=== PATIENT | female | born 1975 | race Caucasian/White ===

== ENCOUNTER 2016-05-10 15:59 | Emergency (ER) | payer BC, OTHER ==
--- NOTE | 2016-05-10 17:03 | UC ---
Hand/Wrist HPI - HPI Summary HPI Summary: 41 yo female injured he right hand jumping in [place] the ocean 5 days ago sustained an abrasion now hand more swollen and painful she is right handed and a type II diabetic no f/c - History Of Current Complaint Chief Complaint: UCUpperExtremity Stated Complaint: RIGHT HAND INJURY Time Seen by Provider: 05/10/16 16:47 Hx Obtained From: Patient Hx Last Menstrual Period: n/a Mechanism Of Injury: hit hand on floating dock Onset/Duration: Sudden Onset Severity Initially: Mild Severity Currently: Moderate Pain Intensity: 4 Pain Scale Used: 0-10 Numeric Character Of Pain: Dull, Aching Aggravating Factor(s): Movement Alleviating: Nothing Associated Signs And Symptoms: Positive: Swelling Related History: Dominant Hand Right - Allergies/Home Medications Allergies/Adverse Reactions: Allergies Allergy/AdvReac Type Severity Reaction Status Date / Time codeine Allergy See Comment Uncoded 05/10/16 16:39 environmental allergy Allergy Eyes Uncoded 07/01/15 14:59 Itchy/Swollen/Red/Watery Home Medications: Home Medications Aleve Tab 2 tab PO DAILY PRN 05/10/16 [History] Canagliflozin (NF) [Invokana (NF)] 100 mg PO DAILY 05/10/16 [History Confirmed 05/10/16] PMH/Surg Hx/FS Hx/Imm Hx Previously Healthy: Yes Endocrine History Of: Reports: Diabetes - Type 2 Cardiovascular History Of: Reports: Hypertension - Surgical History Surgical History: Yes Surgery Procedure, Year, and Place: UTERINE ABLATION, CSECTION, LEFT LEG SURG. RIGHT HEEL SPUR REMOVED. Gallbladder surgery - 02/05 - Family History Known Family History: Positive: Hypertension - Social History Alcohol Use: Occasionally Substance Use Type: None Smoking Status (MU): Never Smoked Tobacco - Immunization History Most Recent Influenza Vaccination: JAN 2015 Most Recent Tetanus Shot: UTD Review of Systems Constitutional: Negative Skin: Negative Eyes: Negative ENT: Negative Respiratory: Negative Cardiovascular: Negative Gastrointestinal: Negative Genitourinary: Negative Motor: Negative Neurovascular: Negative Musculoskeletal: Negative Neurological: Negative Psychological: Negative All Other Systems Reviewed And Are Negative: Yes Physical Exam Triage Information Reviewed: Yes Appearance: Well-Appearing, No Pain Distress, Well-Nourished Vital Signs: Initial Vital Signs Temp 97.3 F 05/10/16 16:29 Pulse 88 01/17/17 16:29 Resp 18 05/10/16 16:29 BP 127/91 05/10/16 16:29 Eyes: Positive: Conjunctiva Clear ENT: Positive: Hearing grossly normal. Negative: Nasal congestion, Nasal drainage, Trismus, Muffled/hoarse voice Neck: Positive: Supple, Nontender Respiratory: Positive: Lungs clear, Normal breath sounds, No respiratory distress Cardiovascular: Positive: RRR Musculoskeletal: Positive: ROM Intact, Edema @ - seee image Neurological: Positive: Alert Psychological Exam: Normal Skin Exam: Other - see image Hand/Wrist Course/Dx - Differential Dx/Diagnosis Provider Diagnoses: right hand contusion. ? infected abrasion Discharge - Discharge Plan Condition: Stable Disposition: HOME Prescriptions: DOXYcycline CAP(*) [DOXYcycline 100MG CAP(*)] 100 mg PO BID #14 cap Patient Education Materials: Contusion in Adults (ED) Referrals: Luis M Cannon PA [Primary Care Provider] - 1 Week Additional Instructions: recheck for new or worsening symptoms Images Hands: 1 - scabbed over abrasion with slight surrounding erythema 2 - dorsal hand edema. no erthema except immediately surrounding the abrasion
[2016-05-10 17:29] VITALS: BP 127/91
--- NOTE | 2016-05-10 17:32 | RAD ---
INDICATION: Pain at the right second through third metacarpals after traumatic injury 5 days earlier COMPARISON: None. TECHNIQUE: 2 views of the right hand were obtained. FINDINGS: The adequately corticated bones are in normal alignment. No significant focal osseous abnormality or fracture is seen. Joint spaces appear maintained. IMPRESSION: Normal right hand radiograph. If the patient's symptoms persist, follow-up imaging is recommended.
== END 2016-05-10 17:56 | disposition home or self-care (01) ==
LOC: UCCORT 15:59
DX: S60.221A Contusion of right hand, initial encounter (principal); S60.511A Abrasion of right hand, initial encounter; W16.612A Jumping or diving into natural body of water striking water surface causing other injury, initial encounter; Y93.89 Activity, other specified; Y92.89 Other specified places as the place of occurrence of the external cause; E11.9 Type 2 diabetes mellitus without complications; Z79.84 Long term (current) use of oral hypoglycemic drugs
CPT/HCPCS: 99212; G0463

== ENCOUNTER 2016-11-26 13:56 | Emergency (ER) | payer BC ==
[2016-11-26 14:09] VITALS: BP 130/82
--- NOTE | 2016-11-26 14:16 | UC ---
Lower Extremity/Ankle HPI - HPI Summary HPI Summary: 41 y/o female presents to the urgent care c/o RT heel and ankle pain since 2016 after spending 15 hrs of standing while working. Pt reports she has HX of surgery on that foot about 3 years ago for a heal spur where her Achilles tendon was reattached. Pt states pain is localized at the lateral side of ankle w/ swelling and back of her heel, Pain is 8/10 upon standing and 4/10 at rest. Pt took ibuprofen this morning at 0830 which alleviates her symptoms. Pt denies fever, SOB, chest pain, Calf pain, N/V/D. Pt has not other complains. - History of Current Complaint Stated Complaint: RIGHT FOOT PAIN-HEEL & SIDE Time Seen by Provider: 11/26/16 14:00 Hx Obtained From: Patient Hx Last Menstrual Period: "ongoing spotting" Scheduled for Hysterectomy 12/16/16 ?: No Onset/Duration: Gradual Onset, Lasting Days, Still Present Severity Initially: Moderate Severity Currently: Severe Pain Intensity: 8 Pain Scale Used: 0-10 Numeric Aggravating Factor(s): Standing, Ambulation Alleviating Factor(s): Rest, OTC Meds Able to Bear Weight: Yes - Risk Factors Gout Risk Factors: Negative, Age Over 40, Diabetes, Hypertension DVT Risk Factors: Negative Septic Arthritis Risk Factor: Negative - Allergies/Home Medications Allergies/Adverse Reactions: Allergies Allergy/AdvReac Type Severity Reaction Status Date / Time Codeine AdvReac "Buzzed Verified 11/26/16 14:02 Feeling" and Difficulty Sleeping Home Medications: Home Medications Aspirin [Aspirin Enteric Coated 81 MG] 81 mg PO DAILY 11/26/16 [History Confirmed 11/26/16] Dulaglutide (NF) [Trulicity (NF)] 1.5 mg SUBCUT MO 11/26/16 [History Confirmed 11/26/16] Ibuprofen TAB* [Advil TAB*] 600 mg PO Q6H PRN 11/26/16 [History Confirmed ] PMH/Surg Hx/FS Hx/Imm Hx Previously Healthy: Yes Endocrine History: Diabetes Cardiovascular History: Hypertension - Surgical History Surgical History: Yes Surgery Procedure, Year, and Place: UTERINE ABLATION, CSECTION, LEFT LEG SURG. RIGHT HEEL SPUR REMOVED. Gallbladder surgery - 02/05 - Family History Known Family History: Positive: Hypertension, Diabetes Family History: Breast cancer - Social History Occupation: Employed Full-time Lives: With Family Alcohol Use: Occasionally Substance Use Type: None Smoking Status (MU): Never Smoked Tobacco Household Exposure Type: Cigarettes - Immunization History Most Recent Influenza Vaccination: JAN 2015 Most Recent Tetanus Shot: UTD Review of Systems Constitutional: Negative Skin: Negative Eyes: Negative ENT: Negative Respiratory: Negative Cardiovascular: Negative Gastrointestinal: Negative Genitourinary: Negative Motor: Negative Neurovascular: Negative Musculoskeletal: Other: - RT heel and Rt ankle pain Neurological: Negative Psychological: Negative All Other Systems Reviewed And Are Negative: Yes Physical Exam Triage Information Reviewed: Yes Appearance: Well-Appearing, No Pain Distress, Well-Nourished, Obese Vital Signs: Initial Vital Signs Temp 98.1 F 11/26/16 14:01 Pulse 90 11/26/16 14:01 Resp 16 11/26/16 14:01 BP 130/82 11/26/16 14:01 Vital Signs Reviewed: Yes Eye Exam: Normal Eyes: Positive: Conjunctiva Clear - PERRLA, EOMI, fundi grossly normal ENT Exam: Normal ENT: Positive: Normal ENT inspection, Hearing grossly normal, Pharynx normal, TMs normal Dental Exam: Normal Neck exam: Normal Neck: Positive: Supple, Nontender, No Lymphadenopathy Respiratory Exam: Normal Respiratory: Positive: Chest non-tender, Lungs clear, Normal breath sounds Cardiovascular Exam: Normal Cardiovascular: Positive: RRR, No Murmur, Pulses Normal Abdominal Exam: Normal Abdomen Description: Positive: Nontender, No Organomegaly, Soft. Negative: CVA Tenderness (R), CVA Tenderness (L) Bowel Sounds: Positive: Present Neurological Exam: Normal Psychological Exam: Normal Skin Exam: Normal - RT ankle: Pt w/ difficulty walking ,Limited ROM due to pain , with mild swelling on the RT lateral malleolus, and tender to palaption . Positive pulses, sensation is intact, brisk capillary refill. Tenderness over the achilles tendon and limited flexion and extension due to pain. Rt heel tender on palaption. Devin's sign: negative Lower Extremity Course/Dx - Course Course Of Treatment: 41 y/o female presents to the urgent care c/o RT heel and ankle pain since 11/12/2016 after spending 15 hrs of standing while working. Pt reports she has HX of surgery on that foot about 3 years ago for a heal spur where her Achilles tendon was reattached. Pt states pain is localized at the lateral side of ankle w/ swelling and back of her heel, Pain is 8/10 upon standing and 4/10 at rest. Pt took ibuprofen this morning at 0830 which alleviates her symptoms. Pt denies fever, SOB, chest pain, Calf pain, N/V/D. Hx obtained. PE abnormal findings:RT ankle: Pt w/ difficulty walking ,Limited ROM due to pain, with mild swelling on the RT lateral malleolus, and tender to palaption . Positive pulses, sensation is intact, brisk capillary refill. Tenderness over the achilles tendon and limited flexion and extension due to pain. Rt heel tender on palaption. Devin's sign: negative. RT ankle X-ray ordered: impression: Significant thickened insertional segment w/ extension to the noninsertional segment. Suspicious of advance Achilles tendinopathy. Pt Rx Ibuprofen PO after meals to alleviate symptoms, RICE and f/u with PT in 5 days after swelling decreases and symptoms improve. Pt understood and agreed. Left the clinic ambulating. - Differential Dx/Diagnosis Differential Diagnosis/HQI/PQRI: Arthritis, Cellulitis, DVT, Sprain, Tendonitis - Achilles tendonitis, Achilles rupture, spur, Provider Diagnoses: 1- RT achilles tendonitis Discharge - Discharge Plan Condition: Stable Disposition: HOME Prescriptions: Ibuprofen TAB* [Motrin TAB* 800 MG] 800 mg PO Q6H #30 tab Patient Education Materials: Achilles Tendinitis (ED) Referrals: Luis M Cannon PA [Primary Care Provider] - 1 Week Additional Instructions: Please take medications as directed after meals to alleviate swelling and pain, apply ice and keep. Avoid movement until swelling decreases. F/u Pt evaluation for further evaluation and treatment.
[2016-11-26] MEDS ORDERED: Ketorolac INJ* 60 MG/2 ML VIAL IM ONE (14:35)
--- NOTE | 2016-11-26 14:44 | RAD ---
Indication: Lateral and posterior RIGHT ankle pain. Previous heel spur resection. Comparison: January 04, 2011 Technique: AP, mortise, and lateral views RIGHT ankle. Report: Normal articular alignment. Negative for significant joint space narrowing. Minimal osteophytosis throughout. No suggestion of talocrural joint effusion. Significantly thickened insertional segment of the Achilles tendon with extension to the noninsertional segment highly suspicious for advanced Achilles tendinopathy increased over the prior exam. Small Achilles tendon insertion and moderate plantar fascia origin bone spurs. Nonfocal soft tissue swelling. IMPRESSION: Significantly thickened insertional segment of the Achilles tendon with extension to the noninsertional segment highly suspicious for advanced Achilles tendinopathy increased over the prior exam.
== END 2016-11-26 15:04 | disposition home or self-care (01) ==
LOC: UCCORT 13:56
DX: M76.61 Achilles tendinitis, right leg (principal); E11.9 Type 2 diabetes mellitus without complications; I10 Essential (primary) hypertension; Z79.82 Long term (current) use of aspirin; F17.210 Nicotine dependence, cigarettes, uncomplicated; Z88.5 Allergy status to narcotic agent
CPT/HCPCS: 96372; 99212; G0463; J1885

== ENCOUNTER 2016-12-16 07:53 | Observation (INO) | payer BC ==
[~2016-12-16 07:53] MED LIST: Buffered Lidocaine 0.9% SYRIN* 5 ML/SYR SYRINGE INTRADERM ONE; Famotidine IV* 10 MG/ML 2 ML (20 mg) IV ONE; Ondansetron INJ* 2 MG/ML VIAL IV ONE
[2016-12-16] MEDS ORDERED: Midazolam* 1 MG/ML 2 ML VIAL (2 MG) ONE (07:58)
[2016-12-16] MEDS ORDERED: fentaNYL* 50 MCG/ML 5 ML VIAL (250 MCG VIAL) ONE (07:58)
[2016-12-16] MEDS ORDERED: Rocuronium* 10 MG/ML VIAL ONE (08:03)
[2016-12-16] MEDS ORDERED: Lidocaine 2% PF * 5 ML VIAL ONE ×2 (08:03→11:58)
[2016-12-16] MEDS ORDERED: Propofol* 10 MG/ML 20 ML BTL IV PUSH ONE ×2 (08:03→10:09)
[2016-12-16] MEDS ORDERED: Famotidine IV* 10 MG/ML 2 ML (20 mg) ONE (08:20)
[2016-12-16] MEDS ORDERED: Ondansetron INJ* 2 MG/ML VIAL ONE (08:20)
[2016-12-16] MEDS ORDERED: Buffered Lidocaine 0.9% SYRIN* 5 ML/SYR SYRINGE ONE (08:21)
[2016-12-16] MEDS ORDERED: ceFOXitin 2 GM IVPREMIX* 2 GM/50 ML BAG ONE (08:22)
[2016-12-16] MEDS ORDERED: Bupivacaine 0.25% SDV* 30 ML ONE (08:54)
[2016-12-16] MEDS ORDERED: Succinylcholine* 20 MG/ML 10 ML VIAL ONE (09:18)
[2016-12-16] MEDS ORDERED: Phenylephrine IV* 40 MCG/ML 10 ML SYRINGE ONE (09:52)
[2016-12-16] MEDS ORDERED: HYDROmorphone* 1 MG/ML 1 ML SYR ONE ×2 (10:15→12:59)
[2016-12-16] MEDS ORDERED: Scopolamine 1.5 mg* PATCH TRANSDERM PRN (10:19)
[2016-12-16] MEDS ORDERED: Acetaminophen TAB* 325 MG PO PRN (10:19)
[2016-12-16] MEDS ORDERED: DiMENhydriNATE IV* 50 MG/ML VIAL IV PUSH PRN (10:19)
[2016-12-16] MEDS ORDERED: Neostigmine Methylsulfate* 2 MG/2 ML SYRINGE ONE ×2 (10:25→11:35)
[2016-12-16] MEDS ORDERED: Glycopyrrolate IV* 0.2 MG/ML 1 ML VIAL ONE ×2 (10:25→11:35)
[2016-12-16] MEDS ORDERED: Atracurium* 10 MG/ML 10 ML VIAL ONE (10:53)
[2016-12-16] MEDS ORDERED: fentaNYL* 50 MCG/ML 2 ML VIAL (100 MCG VIAL) ONE ×2 (11:53→12:47)
[2016-12-16] MEDS ORDERED: Esmolol* 10 MG/ML 10 ML (100 mg) ONE (12:10)
[2016-12-16] MEDS ORDERED: oxyCODONE/Acetamin 5/325 MG* TAB PO PRN (12:30)
[2016-12-16] MEDS ORDERED: Ondansetron INJ* 2 MG/ML VIAL IV PRN (12:37)
[2016-12-16] MEDS: fentaNYL* 50 MCG/ML 2 ML VIAL (100 MCG VIAL) IV PRN ×4 (12:48→13:13)
[2016-12-16] MEDS: HYDROmorphone* 1 MG/ML 1 ML SYR IV PRN ×3 (13:00→13:23)
[2016-12-16] MEDS: Ketorolac INJ* 30 MG/ML 1 ML VIAL IV PUSH SCH ×2 (13:03→19:27)
[2016-12-16] MEDS ORDERED: Dextrose 50% Syringe 50 ML* 25 GM/50 ML SYRINGE IV PUSH PRN (13:09)
[2016-12-16] MEDS: Simethicone CHEW TAB* 80 MG PO SCH ×3 (14:18→20:43)
--- NOTE | 2016-12-16 15:49 | CONS ---
CC: Dr. Solorzano; Chris Cannon from [facility] CONSULTATION REPORT: DATE OF CONSULT: 12/16/16 REASON FOR CONSULTATION: A consult was requested for diabetic management and hypertension managemen t of a postoperative patient. CHIEF COMPLAINT: Lower abdominal pain. HISTORY OF PRESENT ILLNESS: Coby Santamaria is a 41-year-old female who was seen in postoperative uni t after laparoscopic hysterectomy performed by Dr. Solorzano today. The patient had general anesthesia a nd has had no perioperative complications. She is doing well, although she complains of periumbilic al pain after the procedure. Patient has a history of diabetes and hypertension as well as von Willebrand disease. She is going to be observed on surgical unit overnight. PAST MEDICAL HISTORY: 1. Diabetes, type 2. 2. Hyperlipidemia. 3. Hypertension. 4. Von Willebrand disease. 5. History of vein laser ablation in 2016. 6. Status post laparoscopic cholecystectomy. 7. History of left leg hematoma status post drainage. MEDICATIONS: At home include: 1. Metformin 1000 mg b.i.d. 2. Lisinopril 20 mg daily. 3. Ibuprofen on a p.r.n. basis. 4. Amaryl 4 mg daily. 5. Fluoxetine 20 mg daily. 6. Trulicity 1.5 mg subcutaneously monthly. 7. Lipitor 20 mg daily. 8. Aspirin 81 mg daily. SOCIAL HISTORY: The patient denies any tobacco, alcohol, or drug use. She works for one of the [employer]. Her surrogate decision maker is her , Immanuel Santamaria. FAMILY HISTORY: Positive for father with a stroke and mother with history of COPD and breast cancer . REVIEW OF SYSTEMS: Please note that the patient is slightly sedated after general anesthesia. She complains of periumbilical pain and harish-incisional pain. She stated that she is unsure how her sug ars are controlled because she never checks them at home. She denies any chest pain. She denies an y shortness of breath or cough. She does complain of periumbilical, abdominal pain postoperatively. She denies leg edema. All the remaining 14 systems were reviewed with the patient and were otherw ise negative. PHYSICAL EXAM: Blood pressure of 133/84, heart rate of 99 and regular, respiratory rate 18, oxygen saturation 99% on 2 L of oxygen via nasal cannula, temperature of 97.9. General: The patient is a very pleasant 41-year-old obese female with a BMI of 43. The patient is in no acute distress. She is mildly sedated, but otherwise oriented x3. HEENT: Head is atraumatic and normocephalic. Eyes: Pupils are equal, reactive to light and accommodation. Oropharynx clear. Mucosa moist. Neck: Sup ple. No JVD. No bruit bilaterally. Cardiovascular: Regular rate and rhythm. No murmur. Respira tory: Clear to auscultation bilaterally. Abdomen: Soft, mildly tender in the periumbilical area wh ere the incision is located with no rebound, no guarding. Bowel sounds are hypoactive but present i n all 4 quadrants. Extremities: There is trace bilateral pedal edema. Pulses are +2 bilaterally. T here is no clubbing or cyanosis. On neuro evaluation, speech is clear. Cranial nerves II through X II grossly intact. Motor strength is 5/5 bilaterally. On evaluation of the skin, the patient has n o rashes noted. She does have an incision within her umbilicus that is sutured with no evidence of dehiscence or drainage. Psychiatric Evaluation: Mildly sedated postoperatively, oriented x3. No ev idence of anxiety or depression. DIAGNOSTIC STUDIES/LAB DATA: Current laboratory data was last obtained on 12/09/16 showed a white b lood cell count of 8.3, hemoglobin of 14.2, hematocrit of 42, and platelets of 215. Sodium was 133, potassium of 4.4, chloride 100, carbon dioxide 27, BUN 10, creatinine 0.66. Liver function is unre markable. ASSESSMENT AND PLAN: Coby Santamaria is a 41-year-old female with a history of von Willebrand, diabet es, and hypertension who was seen postoperatively for medicine consultation. 1. In regards to the patient's diabetic management, her oral hypoglycemics are going to be held. S he is going to be placed on insulin sliding scale and diabetic diet. We will follow her daily. 2. In regards to the patient's hypertension, her lisinopril is going to be restarted tomorrow. 3. For depression, her fluoxetine is going to be continued as previously ordered. 4. For dyslipidemia, her Lipitor is going to be restarted tomorrow. 5. In regards of DVT prophylaxis, I will defer that to postoperative management by Dr. Solorzano. 6. The patient's code status is full and her surrogate decision maker is her . Thank you for allowing me to see the patient in consultation. We will see the patient on a daily ba sis. TIME SPENT: Approximately 60 minutes was spent on the patient's consultation. [id number]/[facility] #: [id number]
[2016-12-16] MEDS: oxyCODONE/Acetamin 5/325 MG* TAB PO PRN ×2 (16:22→20:43)
[2016-12-16] MEDS: Insulin LISPRO* 1 UNITS UNIT SUBCUT SCH ×2 (17:23→21:00)
[2016-12-17] MEDS: oxyCODONE/Acetamin 5/325 MG* TAB PO PRN (01:14)
[2016-12-17] MEDS: Ketorolac INJ* 30 MG/ML 1 ML VIAL IV PUSH SCH ×2 (01:15→07:24)
[2016-12-17 06:47] LABS: Hematocrit 34 % (35-47); Hemoglobin 11.7 g/dl (12.0-16.0); Mean Corpuscular HGB Conc 35 g/dl (31-36); Mean Corpuscular Hemoglobin 30 pg (27-31); Mean Corpuscular Volume 86 fL (80-97); Mean Platelet Volume 8 um3 (7.4-10.4); Red Blood Count 3.95 10^6/ul (4.0-5.4); Red Cell Distribution Width 13 % (10.5-15)
[2016-12-17] MEDS: Simethicone CHEW TAB* 80 MG PO SCH (07:26)
--- NOTE | 2016-12-17 07:59 | PN ---
Subjective Date of Service: 12/17/16 Interval History: Pt feels "sore " in lower abdomen. Had some crackers last night, but didn't eat dinner Objective Active Medications: Atorvastatin Calcium (Lipitor*) 20 mg PO QAM [facility] Last Admin: 12/17/16 07:26 Dose: 20 mg Dextrose (D50w Syringe 50 Ml*) 12.5 gm IV PUSH .FOR FS < 60 - SS PRN PRN Reason: FS < 60 Fluoxetine HCl (Prozac Cap*) 20 mg PO QAM [facility] Last Admin: 12/17/16 07:26 Dose: 20 mg Lactated Ringer's (Lactated Ringers 1000 Ml Bag*) 1,000 mls @ 125 mls/hr IV PER RATE [facility] Last Admin: 12/16/16 23:05 Dose: 125 mls/hr Insulin Human Lispro (Humalog*) 0 units SUBCUT ACHS [facility] PRN Reason: Protocol Last Admin: 12/16/16 21:00 Dose: 6 units Lisinop[facility] ([facility]inivil Tab*) [facility] Last Admin: 12/17/16 07:26 Dose: 20 mg Metformin HCl (Glucophage*) 1,000 mg PO BID [facility] Last Admin: 12/17/16 07:26 Dose: 1,000 mg Ondansetron HCl (Zofran Inj*) 4 mg IV Q6H PRN PRN Reason: NAUSEA Last Admin: 12/16/16 18:27 Dose: 4 mg Oxycodone/Acetaminophen (Percocet 5/325 Tab*) 1 tab PO Q4H PRN PRN Reason: PAIN - MODERATE Oxycodone/Acetaminophen (Percocet 5/325 Tab*) 2 tab PO Q4H PRN PRN Reason: PAIN - SEVERE Last Admin: 12/17/16 01:14 Dose: 2 tab Simethicone (Mylicon*) 80 mg PO [facility] Last Admin: 12/17/16 07:26 Dose: 80 mg Vital Signs 12/16/16 12/16/16 12/16/16 08:46 12:26 12:30 Temperature 97.5 F 97.9 F Pulse Rate 77 108 106 Respiratory 18 18 20 Rate Blood Pressure 146/82 141/91 132/72 (mmHg) O2 Sat by Pulse 100 100 96 Oximetry 12/16/16 12/16/16 12/16/16 12:35 12:45 12:48 Temperature Pulse Rate 98 99 Respiratory 18 18 20 Rate Blood Pressure 113/76 123/84 (mmHg) O2 Sat by Pulse 98 99 Oximetry 12/16/16 12/16/16 12/16/16 12:57 13:00 13:05 Temperature Pulse Rate 100 Respiratory 20 16 16 Rate Blood Pressure 127/63 (mmHg) O2 Sat by Pulse 96 Oximetry 12/16/16 12/16/16 12/16/16 13:13 13:15 13:23 Temperature Pulse Rate 102 Respiratory 15 14 14 Rate Blood Pressure 131/90 (mmHg) O2 Sat by Pulse 97 Oximetry 12/16/16 12/16/16 12/16/16 13:30 13:45 14:07 Temperature 97.5 F 97.6 F Pulse Rate 103 99 99 Respiratory 18 20 28 Rate Blood Pressure 110/71 121/77 111/75 (mmHg) O2 Sat by Pulse 98 97 98 Oximetry 12/16/16 12/16/16 12/16/16 14:08 14:10 15:12 Temperature 97.6 F 98.0 F Pulse Rate 99 110 Respiratory 22 28 19 Rate Blood Pressure 111/75 126/74 (mmHg) O2 Sat by Pulse 98 97 Oximetry 12/16/16 12/16/16 12/16/16 16:07 16:22 18:06 Temperature 98.2 F 99.4 F Pulse Rate 114 121 Respiratory 18 16 18 Rate Blood Pressure 109/57 118/78 (mmHg) O2 Sat by Pulse 96 97 Oximetry 12/16/16 12/16/16 12/16/16 19:14 20:13 20:43 Temperature 98.5 F Pulse Rate 111 Respiratory 18 18 1 Rate Blood Pressure 100/75 (mmHg) O2 Sat by Pulse 94 Oximetry 12/16/16 12/16/16 12/17/16 21:24 22:43 00:45 Temperature 98.7 F 98.2 F Pulse Rate 112 89 Respiratory 18 16 16 Rate Blood Pressure 131/80 112/73 (mmHg) O2 Sat by Pulse 94 90 Oximetry 12/17/16 12/17/16 12/17/16 01:14 03:14 03:50 Temperature 99.1 F Pulse Rate 88 Respiratory 20 16 20 Rate Blood Pressure 125/71 (mmHg) O2 Sat by Pulse 90 Oximetry Oxygen Devices in Use Now: None Appearance: 41 yo F in nAD, AAOx3 Eyes: No Scleral Icterus, PERRLA Ears/Nose/Mouth/Throat: NL Teeth, Lips, Gums, Mucous Membranes Moist Neck: NL Appearance and Movements; NL JVP, Trachea Midline Respiratory: Symmetrical Chest Expansion and Respiratory Effort, Clear to Auscultation Cardiovascular: NL Sounds; No Murmurs; No JVD, RRR Abdominal: - - tender inlower abd, no rebound, no guarding, BS+ Lymphatic: No Cervical Adenopathy Extremities: No Edema, No Clubbing, Cyanosis Skin: - - umbilical incision sutured, no dehiscence Neurological: Alert and Oriented x 3, NL Muscle Strength and Tone Result Diagrams: 12/17/16 06:10 Assess/Plan/Problems-Billing Assessment: 41 yo F With h/o HTN, dyslipidemia, DM2 , s/p laparoscopic hysterectomy - Patient Problems (1) S/P hysterectomy Comment: As per Dr. Solorzano, doing well, suspect will go home today (2) HTN (hypertension) Comment: constrolled, cont lisinopril (3) DM2 (diabetes mellitus, type 2) Comment: BG's in 200's, will restart metformin. Can restart Amaryl once at home (4) Dyslipidemia Comment: cont Lipitor Status and Disposition: medicine consult for DM, HTN management
[2016-12-17] MEDS: Insulin LISPRO* 1 UNITS UNIT SUBCUT SCH (08:11)
[2016-12-17] MEDS ORDERED: metFORMIN* 500 MG TAB PO SCH (09:00)
[2016-12-17] MEDS ORDERED: Lisinopril TAB* 10 MG PO SCH (09:00)
[2016-12-17] MEDS ORDERED: FLUoxetine CAP* 20 MG PO SCH (09:00)
[2016-12-17] MEDS ORDERED: Atorvastatin* 20 MG TAB PO SCH (09:00)
[2016-12-17 09:28] VITALS: BP 126/84
[2016-12-17] MEDS ORDERED: Acetaminophen TAB* 325 MG PO PRN (10:10)
[2016-12-17] MEDS ORDERED: Acetaminophen TAB* 325 MG ONE (10:12)
--- NOTE | 2016-12-17 12:27 | DS ---
DISCHARGE SUMMARY: DATE OF ADMISSION: 12/16/16 DATE OF DISCHARGE: 12/17/16 HOSPITAL COURSE: This patient was a 41-year-old 1, para 1, who presented to the office within the last month with report of persistent abnormal uterine bleeding. The patient underwent an endometrial ablation over 10 years previously and the bleeding had now returned. Endometrial biopsy returned benign other than possible small polyp. Hysteroscopic evaluation in the clinic revealed a very small uterine cavity, which was not amendable to another ablation. The patient strongly desired to have a hysterectomy, so she was extensively counseled for this. On the day of admission, she underwent a uncomplicated laparoscopic supracervical hysterectomy and bilateral salpingectomy. Only finding of note was a large dilated hydrosalpinx on the right side. Estimated blood loss was 200 mL. After a brief recovery, the patient was transferred to the woods overnight. The hospitalist service kindly managed her medical issues including hypertension and type 2 diabetes. On postoperative day #1, the patient was ambulating and tolerating a regular diet, voiding spontaneously and having good pain control with oral pain medications. She was discharged to home in good condition on postoperative day 1. DISCHARGE PHYSICAL EXAMINATION: Vital Signs: Temperature 98.5, pulse 83, blood pressure 126/84. General: No acute distress. Moving well and appears comfortable. Abdomen: Soft, mild tenderness to palpation primarily around the umbilical incision. DISCHARGE LABS: Hemoglobin 11.7 and hematocrit 34. DISCHARGE INSTRUCTIONS: The patient was provided with both verbal and written instructions for her postoperative care. Precautions were also provided. DISCHARGE MEDICATIONS: Please see the discharge medication reconciliation list. DISCHARGE DIAGNOSES: Abnormal uterine bleeding, status post laparoscopic supracervical hysterectomy and bilateral salpingectomy, morbid obesity, type 2 diabetes, hyperlipidemia, and hypertension. [id number]/[facility] #: [id number] MTDD
--- NOTE | 2016-12-17 15:15 | OP ---
DATE OF OPERATION: 12/16/16 - ROOM #331 DATE OF : 75 SURGEON: Adela Solorzano MD. OVER SHORT AND DAMAGE CLERK: Dr. Parker. ANESTHESIOLOGIST: Dr. Friend. ANESTHESIA: General endotracheal. PRE-OP DIAGNOSIS: Abnormal uterine bleeding and morbid obesity. POST-OP DIAGNOSIS: Abnormal uterine bleeding and morbid obesity. OPERATIVE PROCEDURE: Laparoscopic supracervical hysterectomy with bilateral salpingectomy. ESTIMATED BLOOD LOSS: 200 mL. URINE OUTPUT: 400 cc. IV FLUIDS: 1500 cc lactated Ringer's. MATERIALS TO LAB: Uterus and bilateral fallopian tubes without cervix. INDICATIONS: The patient was a 41-year-old 1, para 1 who had been seen at previous provider at our office with complaint of return of abnormal bleeding , which had previously been improved with endometrial ablation several years earlier. Endometrial biopsy returned benign, but it was not possible to repeat the ablation. The patient desired to proceed with a hysterectomy. After extensive counseling, the patient desired to proceed with a laparoscopic supracervical hysterectomy and bilateral salpingectomy. Consent was signed. FINDINGS: Normal appearing uterus. Bilateral ovaries appeared normal. Left fallopian tube appeared normal. Right fallopian tube significantly enlarged with apparent hydrosalpinx. No visible evidence of endometriosis. COMPLICATIONS: None. DESCRIPTION OF PROCEDURE: The risks, benefits, and alternatives were described to the patient and informed consent was obtained. The patient was taken to the operating room with IV running where general anesthesia was induced and found to be adequate. The patient was prepped and draped in the normal sterile fashion in the low lithotomy position in [facility]. A time-out was performed. A Chaudhary catheter was placed. A speculum was placed in the vagina and a single tooth tenaculum was placed on the anterior cervix. The cervix was then gently dilated and a ClearView uterine manipulator was placed with the balloon filled inside the uterine cavity. The tenaculum was then removed and the speculum was also removed. Attention was then turned to the abdomen and gloves were changed. About 8 cc of 0.25% Marcaine was then injected into the umbilicus and the area below it. An approximately 4-cm skin incision was then made with a scalpel in the midline. The skin was elevated and dissected off the underlying fascia. The fascia was then grasped with Barak clamps and entered sharply. The fascia was then elevated and the peritoneum was also entered with blunt dissection. Once this incision had been stretched open an Teodoro Mini GelPOINT was prepared. The Teodoro retractor was placed into the peritoneal cavity and tightened down onto the skin. The GelPOINT was then placed onto the Teodoro with [address] The abdomen was then insufflated with carbon dioxide gas with a maximum pressure of 15 mmHg. The patient was placed in the Trendelenburg position. The bowel was swept out of the pelvis as much as possible using blunt graspers. The findings were as noted above. The patient's left round ligament was then grasped with a LigaSure, coagulated, and transected. The anterior broad ligament was then taken down in a similar fashion and a bladder flap was created anteriorly. The left fallopian tube was amputated from the cornua using the LigaSure. The uteroovarian ligament was then also coagulated and transected. The uterine vessels were grasped and coagulated at several spots on the left side. Attention was then turned to the patient's right side, where the round ligament, fallopian tube, uteroovarian ligament, and broad ligaments were all taken down in a similar fashion. The bladder flap was extended to meet up with the left dissection. The bladder was dissected down without difficulty. The right ovarian vessels were then again clamped and coagulated in at least 3 spots. Since the uterus only had modest blanching at that time, additional dissection was performed and additional bites of the areas with the uterine vessels were clamped and coagulated. At this time, the uterus had good change in color showing evidence of loss of vascularity. A SupraLoop was then prepared and placed into the peritoneal cavity and around the uterus. It was tightened down around the upper cervix. A significant amount of time was then spent ensuring that all of the areas around the SupraLoop were completely free of any additional structures including bowel. Once this appeared to be very safe, the ClearView uterine manipulator was removed. The SupraLoop was activated with 100 pure cut current and this amputated the uterus from the cervix without difficulty. Surrounding structures appeared to be completely unharmed. At this time, there was some bleeding from the cervical stump, which appeared to have a blood vessel deep in the stroma. Once this was isolated, it was clamped with a LigaSure and made hemostatic. Similar findings were present on the right side and these were again made hemostatic with the LigaSure. A small amount of blood had been lost during this portion of the procedure and so this was extensively irrigated and suctioned. There was excellent hemostasis present at that time. The patient's left and right fallopian tubes were then removed by taking down the mesosalpinx with the LigaSure and then disconnecting the fimbriated end, again with the LigaSure. Both fallopian tubes were removed individually through the Teodoro retractor. Of note, the patient's right fallopian tube was quite large and dilated. Both ovaries appeared to be normal and the pedicles were hemostatic. The uterus was then grasped and brought near the level of the incision. A 14 cm collection bag was then placed through the Teodoro retractor with the GelPOINT removed. The uterus was collected into the collection bag and the edges of the bag were brought up through the incision. The uterus in place inside the bag was brought up to the level of the skin and it was morcellated using heavy Lynch scissors. Once the entire uterus had been removed, the bag was also removed. The GelPOINT was reattached and the abdomen was re- insufflated. Irrigation was performed again and there was excellent hemostasis present. The gas was then allowed to escape again and the GelPOINT was removed. The Teodoro retractor was then also removed. The fascial incision was reapproximated with 0 Polysorb in a running stitch. The skin was then closed with 4-0 Monocryl in a subcuticular stitch, and DermaFlex skin adhesive was placed over the entire incision. The patient was returned to the supine position. Sponge, lap, and needle counts were correct x2. [id number]/[facility] #: [id number] ESTRELLA
== END 2016-12-17 10:20 | disposition home or self-care (01) ==
LOC: OR 07:53 → SSU 14:07
PROVIDERS: ADMIT Obstetrics & Gynecology; ATTEND Obstetrics & Gynecology
DX: N93.9 Abnormal uterine and vaginal bleeding, unspecified (principal); Z68.41 Body mass index [BMI] 40.0-44.9, adult; E11.9 Type 2 diabetes mellitus without complications; Z79.84 Long term (current) use of oral hypoglycemic drugs; I10 Essential (primary) hypertension; D68.0 Von Willebrand disease; Z79.899 Other long term (current) drug therapy
CPT/HCPCS: 36415; 81025; 85025; 88307; 96374; 96375; A9270-GY; G0378; J0330; J0694; J1170; J1885; J2250; J2405; J2704; J3010

== ENCOUNTER 2017-05-02 18:13 | Emergency (ER) | payer BC ==
[2017-05-02 19:21] VITALS: BP 135/85
--- NOTE | 2017-05-02 19:21 | UC ---
FLU HPI - HPI Summary HPI Summary: 42 year old female presents with complains of fever and cough. - History of Current Complaint Stated Complaint: CHILLS Time Seen by Provider: 05/02/17 19:20 Hx Obtained From: Patient Hx Last Menstrual Period: "ongoing spotting" Scheduled for Hysterectomy 12/16/16 Onset/Duration: Sudden Onset Severity Currently: Moderate Severity Initially: Moderate Pain Scale Used: 0-10 Numeric - 5 Associated Signs & Symptoms: Positive: Fever, Myalgia - Allergy/Home Medications Allergies/Adverse Reactions: Allergies Allergy/AdvReac Type Severity Reaction Status Date / Time Codeine AdvReac "Buzzed Verified 05/02/17 19:21 Feeling" and Difficulty Sleeping Home Medications: Home Medications Empagliflozin [Jardiance] 10 mg PO DAILY 05/02/17 [History Confirmed 05/02/17] ValACYclovir (*) [Valtrex 500 mg (*)] 500 mg PO DAILY PRN 05/02/17 [History Confirmed 05/02/17] PMH/Surg Hx/FS Hx/Imm Hx Previously Healthy: Yes - Surgical History Surgical History: Yes Surgery Procedure, Year, and Place: UTERINE ABLATION, CSECTION, LEFT LEG SURG. RIGHT HEEL SPUR REMOVED. Gallbladder surgery - 02/05 - Family History Known Family History: Positive: None, Hypertension, Diabetes Family History: Breast cancer - Social History Alcohol Use: None Substance Use Type: None Smoking Status (MU): Never Smoked Tobacco Household Exposure Type: Cigarettes - Immunization History Most Recent Influenza Vaccination: JAN 2015 Most Recent Tetanus Shot: UTD Review of Systems Constitutional: Fever, Chills, Fatigue Skin: Negative Eyes: Negative ENT: Nasal Discharge, Sinus Congestion, Sinus Pain/Tenderness Respiratory: Negative Cardiovascular: Negative Gastrointestinal: Negative Genitourinary: Negative Motor: Negative Neurovascular: Negative Musculoskeletal: Negative Neurological: Negative Psychological: Negative All Other Systems Reviewed And Are Negative: Yes Physical Exam Triage Information Reviewed: Yes Appearance: Ill-Appearing Vital Signs: Initial Vital Signs Temp 37.2 C 05/02/17 19:17 Pulse 61 05/02/17 19:17 Resp 16 05/02/17 19:17 BP 135/85 05/02/17 19:17 Pulse Ox 96 05/02/17 19:17 Vital Signs Reviewed: Yes Eye Exam: Normal ENT Exam: Normal ENT: Positive: Pharyngeal erythema, Nasal congestion, Nasal drainage, Sinus tenderness Dental Exam: Normal Neck exam: Normal Neck: Positive: 1 Respiratory Exam: Normal Respiratory: Positive: Wheezing Cardiovascular Exam: Normal Abdominal Exam: Normal Musculoskeletal Exam: Normal Neurological Exam: Normal Psychological Exam: Normal Skin Exam: Normal Flu Course/Dx - Differential Dx/Diagnosis Provider Diagnoses: sinusitis. fever. chills Discharge - Discharge Plan Condition: Stable Disposition: HOME Prescriptions: Amoxicillin/Clavulanate TAB* [Augmentin TAB 875*] 875 mg PO BID #20 tab Fluticasone NASAL SPRAY 50MCG* [Flonase NASAL SPRAY 50MCG*] 2 spray BOTH NARES DAILY #1 btl LoraTADine TAB(NF) [Claritin 10 MG TAB(NF)] 10 mg PO DAILY #30 tab Promethazine-Dm [Promethazine/Dextromethor 6.25-15 mg/5Ml] 1 teasp PO Q8H PRN # 120 ml PRN Reason: Cough Patient Education Materials: Sinusitis (ED) Referrals: Luis M Cannon PA [Primary Care Provider] -
== END 2017-05-02 19:54 | disposition home or self-care (01) ==
LOC: UCCORT 18:13
DX: J32.9 Chronic sinusitis, unspecified (principal); R50.9 Fever, unspecified; Z77.22 Contact with and (suspected) exposure to environmental tobacco smoke (acute) (chronic)
CPT/HCPCS: 87502; 99212; G0463

== ENCOUNTER 2019-03-20 06:57 | Inpatient (IN) | payer BC ==
[~2019-03-20 06:57] MED LIST changes: -Buffered Lidocaine 0.9% SYRIN* 5 ML/SYR SYRINGE INTRADERM ONE; +Buffered Lidocaine 1% SYRIN* 1 ML/SYRINGE INTRADERM ONE; -Ondansetron INJ* 2 MG/ML VIAL IV ONE
--- OUTSIDE RECORDS SUMMARY | 2019-03-20 07:02 | XMS REPORT | Continuity of Care Document ---
:1975 External Reference #:[id number] Author Name Catherine Bardales NP (transmitted by agent of provider Anjali Polanco) Address [address] [place] [address] Care Team Providers Name Role Phone Edda Grace FNP - Nurse Care Team Information Primer Boxer Practitioner Gerard Gonsalez MD Care Team Information Primer Boxer [phone] Problems Active Problems Provider Date Difficulty breathing Catherine Bardales NP Onset: 10/24/2018 Obstructive sleep apnea syndrome Catherine Bardales NP Onset: 01/23/2019 Social History Type Date Description Comments Sex Unknown Tobacco Use Start: Unknown Never Smoked Cigarettes ETOH Use Rare Use Of Alcohol Recreational Drug Use Treated For Substance Abuse In The Past Allergies, Adverse Reactions, Alerts Active Allergies Reaction Severity Comments Date Codeine 10/24/2018 Medications Active Medications SIG Qnty Indications Ordering Provider Date Escitalopram Oxalate 1 by mouth Unknown 20mg every day Tablets Atorvastatin Calcium 1 by mouth Unknown 40mg every day Tablets Aspirin Adult Low Dose 1 by mouth Unknown 81mg every day Tablets Lisinopril 1 by mouth Unknown 20mg Tablets every day Metformin HCL 1 by mouth Unknown 1000mg Tablets twice a day Bupropion Hydrochloride Unknown ER (XL) 300mg Tablets ER 24HR Basaglar Kwikpen Unknown 100Unit/ML Solution Pen-Inject Trulicity Unknown 0.75mg/0.5ML Solution Pen-Inject Vitamin D3 Ultra Potency 1 by mouth per Unknown week [id number] Tablets Immunizations Description No Information Available Vital Signs Date Vital Result Comment 01/23/2019 1:21pm Weight 248.00 lb Height 66 inches 5'6" BMI (Body Mass Index) 40.0 kg/m2 BP Systolic 108 mmHg BP Diastolic 75 mmHg Heart Rate 100 /min O2 % BldC Oximetry 97 % Body Temperature 97.1 F [place] Score 11 Pain Level 0 11/26/2018 2:00pm Weight 254.00 lb Height 66 inches 5'6" BMI (Body Mass Index) 41.0 kg/m2 BP Systolic 119 mmHg BP Diastolic 84 mmHg Heart Rate 96 /min O2 % BldC Oximetry 96 % Body Temperature 97.6 F Pain Level 0 Results Description No Information Available Procedures Date Code Description Status 11/11/2018 52555 Sleep Study, Simultaneous Recording Of Completed Ventilation,Unattended 10/24/2018 93279 Fiberoptic Laryngoscopy,Diag. 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 10/24/2018 R06.83 Snoring Catherine Bardales NP 10/24/2018 G47.9 Sleep disorder, unspecified Catherine Bardales NP Plan of Treatment No Information Available Functional Status Description No Information Available Mental Status Description No Information Available Referrals Description No Information Available
--- OUTSIDE RECORDS SUMMARY | 2019-03-20 07:02 | XMS REPORT | Continuity of Care Document ---
:1975 External Reference #:[id number] Author Name Shady Lentz M.D. (transmitted by agent of provider Kathy Coffey) Address [address] [facility] [address] [place] [address] Care Team Providers Name Role Phone Chris Cannon RPA - Physician Care Team Information Filing Machine Operator [phone] Blowing Engineer Problems Description No Information Available Social History Type Date Description Comments Sex Unknown ETOH Use Drinks 1 Alcoholic Beverage Per Week Tobacco Use Start: Unknown Patient has never smoked Allergies, Adverse Reactions, Alerts Description No Known Drug Allergies Medications Active Medications SIG Qnty Indications Ordering Provider Date Glimepiride 4mg Unknown Tablets Lisinopril 20mg Unknown Tablets Metformin HCL Unknown 1000mg Tablets Fluoxetine HCL Unknown 20mg Capsules Medications Administered in Office Medication SIG Qnty Indications Ordering Provider Date Depomedrol 80MG Belle Young M.D. 11/26/2014 Injection Immunizations Description No Information Available Vital Signs Date Vital Result Comment 11/26/2014 2:05pm Height 66 inches 5'6" Weight 275.00 lb Heart Rate 80 /min BP Systolic Sitting 128 mmHg BP Diastolic Sitting 80 mmHg BMI (Body Mass Index) 44.4 kg/m2 Results Test Acquired Date Facility Test Result H/L Range Note Inr/Protime 03/13/2019 [facility] Inr 1.02 Normal 0.82-1.[address] [place] [address] [phone] Laboratory test 03/13/2019 [facility] Partial 33.7 seconds Normal 26.0-38.[address] [place] [address] Time PTT [phone] Type & Screen 03/13/2019 [facility] Patient O Positive [address] [place] [address] [phone] Antibody Screen NEGATIVE Basic Metabolic 03/13/2019 [facility] Sodium 134 mmol/L Low 135-[address] [place] [address] [phone] Potassium 4.0 mmol/L Normal 3.5-5.0 Chloride 99 mmol/L Low 101-111 Co2 Carbon Dioxide 24 mmol/L Normal 22-32 Anion Gap 11 mmol/L Normal 2-11 Glucose 94 mg/dL Normal 70-100 Blood Urea Nitrogen 14 mg/dL Normal 6-24 Creatinine 0.70 mg/dL Normal 0.51-0.95 BUN/Creatinine Ratio 20.0 Normal 8-20 Calcium 9.8 mg/dL Normal 8.6-10.3 Egfr Non- 91.3 >60 Egfr 110.5 >60 2 CBC No Diff 03/13/2019 [facility] White Blood 9.6 10^3/uL Normal 3.5-10.[address] [place] [address] [phone] Red Blood Count 5.20 10^6/uL High 3.70-4.87 Hemoglobin 14.2 g/dL Normal 12.0-16.0 Hematocrit 43 % Normal 35-47 Mean Corpuscular Volume 83 fL Normal 80-97 Mean Corpuscular Hemoglobin 27 pg Normal 27-31 Mean Corpuscular HGB Conc 33 g/dL Normal 31-36 Red Cell Distribution Width 15 % Normal 10-15 Platelet Count 276 10^3/uL Normal 150-450 Mean Platelet Volume 8.1 fL Normal 7.4-10.4 1 Standard intensity warfarin therapeutic range: 2.0-3.0 High intensity warfarin therapeutic range: 2.5-3.5 2 Because ethnic data is not always readily available, this report includes an eGFR for both -Americans and non- Americans. The National Kidney Disease Education Program (NKDEP) does not endorse the use of the MDRD equation for patients that are not between the ages of 18 and 70, are , have extremes of body size, muscle mass, or nutritional status, or are non- or non-. According to the National Kidney Foundation, irrespective of diagnosis, the stage of the disease is based on the level of kidney function: Stage Description GFR(mL/min/1.73 m(2)) 1 Kidney damage with normal or decreased GFR 90 2 Kidney damage with mild decrease in GFR 60-89 3 Moderate decrease in GFR 30-59 4 Severe decrease in GFR 15-29 5 Kidney failure <15 (or dialysis) Procedures Description No Information Available Medical Devices Description No Information Available Encounters Description No Information Available Assessments Description No Information Available Plan of Treatment 11/26/2014 - Belle Young M.D.726.10 Bursae & Tendon Disorders Shoulder Region UnspecNew Therapy:Physical TherapyFollow up:Follow up: As needed Functional Status Description No Information Available Mental Status Description No Information Available Referrals Description No Information Available
--- OUTSIDE RECORDS SUMMARY | 2019-03-20 07:02 | XMS REPORT | Continuity of Care Document ---
:1975 External Reference #:[id number] Author Name Shady Lentz M.D. (transmitted by agent of provider Kathy Coffey) Address [address] [facility] [address] [place] [address] Care Team Providers Name Role Phone Chris Cannon RPA - Physician Care Team Information Operative Supervisor Coordinator Of Placement Problems Description No Information Available Social History [...] Test Result H/L Range Note Inr/Protime 03/13/2019 [facility] Inr 1.02 Normal 0.82-1.[address] [place] [address] [phone] Laboratory test 03/13/2019 [facility] Partial 33.7 seconds Normal 26.0-38.[address] [place] [address] Time PTT [phone] Type & Screen 03/13/2019 [facility] Patient O Positive [address] [place] [address] [phone] Antibody Screen NEGATIVE Basic Metabolic 03/13/2019 [facility] Sodium 134 mmol/L Low 135-[address] [place] [address] [phone] Potassium 4.0 mmol/L Normal 3.5-5.0 Chloride 99 mmol/L Low 101-111 Co2 Carbon Dioxide 24 mmol/L Normal 22-32 Anion Gap 11 mmol/L Normal 2-11 Glucose 94 mg/dL Normal 70-100 Blood Urea Nitrogen 14 mg/dL Normal 6-24 Creatinine 0.70 mg/dL Normal 0.51-0.95 BUN/Creatinine Ratio 20.0 Normal 8-20 Calcium 9.8 mg/dL Normal 8.6-10.3 Egfr Non- 91.3 >60 Egfr 110.5 >60 2 CBC No Diff 03/13/2019 [facility] White Blood 9.6 10^3/uL Normal 3.5-10.[address] [place] [address] [phone] Red Blood Count 5.20 10^6/uL High 3.70-4.87 [...]
--- OUTSIDE RECORDS SUMMARY | 2019-03-20 07:02 | XMS REPORT | Continuity of Care Document ---
:1975 External Reference #:[id number] Author Name Catherine Bardales NP Address [address] [place] [address] Care Team Providers Name Role Phone Edda Grace FNP - Nurse Care Team Information Card Seller Practitioner Gerard Gonsalez MD Care Team Information Card Seller [phone] Problems Active Problems Provider Date Difficulty breathing [...] Potency 1 by mouth per Unknown week [id number] Tablets Immunizations Description No Information Available Vital Signs Date Vital Result Comment 01/23/2019 1:21pm Weight 248.00 lb Height 66 inches 5'6" BMI (Body Mass Index) 40.0 kg/m2 BP Systolic 108 mmHg BP Diastolic 75 mmHg Heart Rate 100 /min O2 % BldC Oximetry 97 % Body Temperature 97.1 F [place] Score 11 Pain Level 0 11/26/2018 2:00pm Weight 254.00 lb Height 66 inches 5'6" BMI (Body Mass Index) 41.0 kg/m2 BP Systolic 119 mmHg BP Diastolic 84 mmHg Heart Rate 96 /min O2 % BldC Oximetry 96 % Body Temperature 97.6 F Pain Level 0 Results Description No Information Available Procedures Date Code Description Status 11/11/2018 11844 Sleep Study, Simultaneous Recording Of Completed Ventilation,Unattended 10/24/2018 65920 Fiberoptic Laryngoscopy,Diag. 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
[2019-03-20] MEDS ORDERED: Heparin VIAL(*) 5000 UNITS/ML VIAL (FIVE THOUSAND) ONE (07:50)
[2019-03-20] MEDS ORDERED: ceFAZolin 1 GM ADVAN(*) 1 GM ADDV.VIAL IVPB ONE (07:50)
[2019-03-20] MEDS ORDERED: Famotidine IV* 10 MG/ML 2 ML (20 mg) ONE (07:51)
[2019-03-20] MEDS ORDERED: ceFAZolin 2 GM in NS PREMIX(*) 2 GM/100 ML BAG IVPB ONE (07:51)
[2019-03-20] MEDS ORDERED: Buffered Lidocaine 1% SYRIN* 1 ML/SYRINGE INTRADERM ONE (08:03)
[2019-03-20] MEDS: Lactated Ringers 1000 ML Bag* 1,000 ML IV SCH ×4 (08:06→21:22)
[2019-03-20] MEDS ORDERED: Bupivacaine 0.25% EPI 200,000* 30 ML SDV ONE (08:49)
[2019-03-20] MEDS ORDERED: fentaNYL* 50 MCG/ML 2 ML VIAL (100 MCG VIAL) ONE ×4 (08:51→12:26)
[2019-03-20] MEDS ORDERED: Propofol* 500 MG/50 ML BTL ONE (08:51)
[2019-03-20] MEDS ORDERED: Midazolam* 1 MG/ML 2 ML VIAL (2 MG) ONE (08:51)
[2019-03-20] MEDS ORDERED: KETAMINE HCL* 50 MG/ML 10 ML VIAL ONE (08:51)
[2019-03-20] MEDS ORDERED: Rocuronium* 10 MG/ML VIAL ONE ×2 (08:56→10:14)
[2019-03-20] MEDS ORDERED: Propofol* 10 MG/ML 20 ML BTL ONE ×2 (09:50→10:48)
[2019-03-20] MEDS ORDERED: Glycopyrrolate IV* 0.2 MG/ML 1 ML VIAL ONE (10:00)
[2019-03-20] MEDS ORDERED: Neostigmine Methylsulfate* 3 MG/3 ML SYRINGE ONE (10:00)
[2019-03-20] MEDS ORDERED: Ketorolac INJ* 30 MG/ML 1 ML VIAL ONE (10:59)
[2019-03-20] MEDS ORDERED: HYDROmorphone INJ1* 1 MG/ML SYRINGE IV SLOW PU PRN (11:13)
[2019-03-20] MEDS ORDERED: diPHENhydraMINE IV* 50 MG/ML 1 ml VIAL (BENADRYL) SLOW PUSH PRN (11:13)
[2019-03-20] MEDS ORDERED: Dextrose 50% VIAL 50 ml IV PUSH PRN (11:25)
[2019-03-20] MEDS: fentaNYL* 50 MCG/ML 2 ML VIAL (100 MCG VIAL) IV PRN ×2 (11:30→12:31)
[2019-03-20] MEDS ORDERED: Ondansetron INJ* 2 MG/ML VIAL ONE (11:44)
[2019-03-20] MEDS: Ondansetron INJ* 2 MG/ML VIAL IV PRN ×3 (11:46→23:44)
[2019-03-20] MEDS ORDERED: HYDROmorphone INJ1* 1 MG/ML SYRINGE ONE (12:03)
[2019-03-20] MEDS ORDERED: Ondansetron INJ* 2 MG/ML VIAL IV PRN (12:23)
[2019-03-20] MEDS: HYDROmorphone INJ* 0.5 MG/0.5 ML SYRINGE IV SLOW PU PRN (14:19)
[2019-03-20] MEDS: Insulin LISPRO* 1 UNITS UNIT SUBCUT SCH ×2 (14:21→18:18)
[2019-03-20] MEDS: HYDROmorphone INJ1* 1 MG/ML SYRINGE IV SLOW PU PRN ×3 (17:29→23:38)
[2019-03-20] MEDS: Famotidine IV* 10 MG/ML 2 ML (20 mg) IV SLOW PU SCH (20:45)
[2019-03-20] MEDS: Heparin VIAL(*) 5000 UNITS/ML VIAL (FIVE THOUSAND) SUBCUT SCH (20:47)
--- NOTE | 2019-03-20 20:47 | OP ---
CC: [facility]; HITESH Ch OPERATIVE REPORT: DATE OF OPERATION: 03/20/19 DATE OF : 75 SURGEON: Gerard Gonsalez MD TELEMEDICINE PHYSICIAN: Analia Holbrook NP ANESTHESIOLOGIST: Dr. Zimmer. ANESTHESIA: General anesthesia. PRE-OP DIAGNOSES: 1. Clinically severe obesity. 2. Obstructive sleep apnea. POST-OP DIAGNOSES: 1. Clinically severe obesity. 2. Obstructive sleep apnea. OPERATIVE PROCEDURE: Laparoscopic sleeve gastrectomy. ESTIMATED BLOOD LOSS: Minimal. FLUIDS: Please report for crystalloid fluid. SPECIMEN: Portion of the stomach. DRAINS: None. COMPLICATIONS: None. DESCRIPTION OF PROCEDURE: The patient was identified in the preoperative area. She was marked. Cons ent was signed. She was taken to the operating room and placed on the operating table in supine posi tion. Preoperative antibiotics were given. Sequential devices were placed on bilateral lower extrem ities. General anesthesia was induced. The patient's abdomen was prepped and draped in standard mark gical fashion. A time-out was performed. Folds of the umbilicus were elevated anteriorly and a Veress needle was inserted into the abdominal c avity, which was then allowed to insufflate to a pressure of 15 mmHg. A 12-mm optical trocar was the n placed just left of the upper midline. Camera was inserted through this and there was no evidence o f injury from the trocar insertion or from the Veress needle, which was in a wrap of omentum that was attached to what appeared to be a plug at the umbilicus. The Veress needle was removed. We did not see any enteric contents or any small bowel or large bowel in the vicinity. Additional trocars were then placed in the following position: Two 5-mm in the left upper quadrant a nd a 12-mm in the right upper quadrant. The table was placed in a steep reverse Trendelenburg. A Cade retractor was inserted through a subxiphoid incision and the liver was retracted anteriorly and to the right exposing gastroesophageal fat pad. This fat pad was retracted towards the right lower quadrant. Blunt and sharp dissection w as carried out to expose the left mathew. Next, a retrogastric tunnel was made along the greater curvature just 5 cm proximal from the pylorus. We took the vasculature at the greater curvature with the LigaSure device right up to the angle of His that was previously dissected. Posterior attachments were similarly taken. There was no evidence of hiatal hernia. Next, a sleeve stomach was created utilizing a 60-mm purple YANN stapling device with reinforcements s tarting at 5 cm proximal to the pylorus and the greater curvature and extending this towards the inci franklyn. However, prior to firing this, a 40-Armenian bougie was inserted to the distal stomach. Additio nal similar staplers were utilized hugging the bougie and staying tight to this right up to the proxi mal stomach. One portion of the staple line showed some oozing. We reinforced this with a clip cook helper pastry. The stap le line was straight. None of the matheus were irregular appearing. There was no corkscrewing in th e staple line. The Cade retractor was removed and the liver was fell back on top of the sleeve stomach. Next, the resected portion of the stomach was placed in an endoscopic retrieval bag and with some dif ficulty was brought out through the right upper quadrant port site. We did open up the stomach at ti mes and took it out as pieces, but the bag was never violated. Next, the right upper quadrant port site was reapproximated with a 0 Vicryl suture using a Weck devic e. The abdomen was allowed to collapse and trocars were removed under direct vision and all 5 skin i ncisions were reapproximated with 4-0 Monocryl subcuticular sutures followed by Steri-Strips and ster ile dressing. The patient tolerated the procedure well and was transferred to the PACU in stable con dition. [id number]/[facility] #: [id number]
[2019-03-21] MEDS: Insulin LISPRO* 1 UNITS UNIT SUBCUT SCH ×5 (02:34→23:41)
[2019-03-21] MEDS: HYDROmorphone INJ1* 1 MG/ML SYRINGE IV SLOW PU PRN ×3 (03:45→11:04)
[2019-03-21] MEDS: Lactated Ringers 1000 ML Bag* 1,000 ML IV SCH (04:02)
[2019-03-21] MEDS: Heparin VIAL(*) 5000 UNITS/ML VIAL (FIVE THOUSAND) SUBCUT SCH ×3 (06:07→21:19)
[2019-03-21] MEDS: Ondansetron INJ* 2 MG/ML VIAL IV PRN ×3 (06:57→18:44)
[2019-03-21] MEDS: Famotidine IV* 10 MG/ML 2 ML (20 mg) IV SLOW PU SCH ×2 (07:31→20:55)
--- NOTE | 2019-03-21 10:40 | PN ---
Progress Note - Progress Note Date of Service: 03/21/19 SOAP: Subjective: [Pt seen and examined. Pt feeling well. some abdo pain Objective: Temp Pulse Resp BP Pulse Ox 97.8 F 84 16 133/77 97 03/21/19 07:55 03/21/19 07:55 03/21/19 07:55 03/21/19 07:55 03/21/19 07:55 Intake & Output 03/20/19 03/21/19 03/21/19 22:59 06:59 14:59 Intake Total 980 983 Output Total 30 600 Balance 950 383 a and o x3, nad lungs clear abdo: soft/ inc tenderness dressing intact no calf tenderness UGI reviewed Assessment: POD 1 sleeve Plan: PO diet d/c planning
[2019-03-21] MEDS: D5W 1/2 NS KCl 20 Meq 1000 ML* 1,000 ML IV SCH ×2 (11:04→20:55)
[2019-03-21] MEDS: HYDROcodone/ACET. 7.5/325 LIQ* 15 ML UDC PO PRN ×2 (13:49→18:44)
[2019-03-21] MEDS: HYDROmorphone INJ* 0.5 MG/0.5 ML SYRINGE IV SLOW PU PRN (21:16)
[2019-03-22] MEDS: D5W 1/2 NS KCl 20 Meq 1000 ML* 1,000 ML IV SCH (05:17)
[2019-03-22] MEDS: Heparin VIAL(*) 5000 UNITS/ML VIAL (FIVE THOUSAND) SUBCUT SCH (05:19)
[2019-03-22] MEDS: Insulin LISPRO* 1 UNITS UNIT SUBCUT SCH (05:27)
[2019-03-22 06:20] LABS: ABS Basophils 0.1 10^3/ul (0-0.2); ABS Eosinophils 0.4 10^3/ul (0-0.6); ABS Lymphocytes 1.6 10^3/ul (1.0-4.8); ABS Monocytes 0.6 10^3/ul (0-0.8); ABS Neutrophils 3.8 10^3/ul (1.5-7.7); Eosinophil % 5.5 %; Hematocrit 35 % (35-47); Hemoglobin 11.7 g/dL (12.0-16.0); Lymphocyte % 24.9 %; Mean Corpuscular HGB Conc 33 g/dL (31-36); Mean Corpuscular Hemoglobin 27 pg (27-31); Mean Corpuscular Volume 83 fL (80-97); Mean Platelet Volume 7.8 fL (7.4-10.4); Nucleated Red Blood Cells % 0.1; Platelet Count 178 10^3/uL (150-450); Red Blood Count 4.29 10^6 /uL (3.70-4.87); Red Cell Distribution Width 15 % (10-15); White Blood Count 6.4 10^3/uL (3.5-10.8)
[2019-03-22] MEDS: HYDROcodone/ACET. 7.5/325 LIQ* 15 ML UDC PO PRN ×2 (07:13→11:18)
[2019-03-22 07:24] VITALS: BP 139/76
[2019-03-22] MEDS: Famotidine IV* 10 MG/ML 2 ML (20 mg) IV SLOW PU SCH (09:06)
--- NOTE | 2019-03-22 09:08 | DS ---
CC: Dr. Gonsalez, [facility]; HITESH Ch * DISCHARGE SUMMARY: DATE OF ADMISSION: 03/20/19 DATE OF DISCHARGE: 03/22/19 ATTENDING SURGEON: Dr. Gerard Gonsalez.* (DICTATED BY HANNA NEVES NP) HOSPITAL COURSE: Please refer to admission history and physical for admission details. The patient was taken to the operating room on 03/20/19 and underwent laparoscopic sleeve gastrectomy by Dr. Gonsalez. She had an uneventful postoperative course and required minimal pain medication and was able to meet the criteria for oral intake of bariatric clear liquids. She was ambulating in the boyd and using her Inspiron. She was seen earlier this morning by Dr. Gonsalez and she met criteria for discharge. PHYSICAL EXAM: General: Well appearing, in no acute distress. Vital Signs: Temperature 98.8, pulse 72 and regular, respiratory rate 16, O2 saturation 100% on room air, blood pressure 139/76. Lungs: Breath sounds bilaterally clear and equal. Heart: Regular rate and rhythm. No murmurs or rubs appreciated. Abdomen: Laparoscopic port sites are intact. Clean and dry. No surrounding erythema. Active bowel sounds. Abdomen is soft with mild incisional tenderness. Skin: Warm and dry. Extremities: Nontender calf. CONDITION: Stable. IMPRESSION: Status post laparoscopic sleeve gastrectomy, doing extremely well. PLAN: Discharge home today. The instructions were reviewed with the patient. She will have a followup office visit at [facility]. She has a prescription for Lortab elixir as needed and she may use [id number] Adult Strength Liquid Tylenol for mild pain. HANNA NEVES NP [id number]/[facility] #: [id number] [facility]ITAL[facility]
== END 2019-03-22 11:21 | disposition home or self-care (01) | DRG 403 ==
LOC: AA 06:57 → SSU 11:13
PROVIDERS: ADMIT Surgery; ATTEND Surgery
PROC: 0DB64Z3 Excision of Stomach, Percutaneous Endoscopic Approach, Vertical (ICD-10-PCS; principal; 2019-03-20 09:00)
DX: E66.01 Morbid (severe) obesity due to excess calories (principal); I10 Essential (primary) hypertension; G47.33 Obstructive sleep apnea (adult) (pediatric); E55.9 Vitamin D deficiency, unspecified; F32.9 Major depressive disorder, single episode, unspecified; E78.00 Pure hypercholesterolemia, unspecified; E78.2 Mixed hyperlipidemia; F41.9 Anxiety disorder, unspecified; E11.319 Type 2 diabetes mellitus with unspecified diabetic retinopathy without macular edema; E04.2 Nontoxic multinodular goiter; Z90.711 Acquired absence of uterus with remaining cervical stump; Z88.5 Allergy status to narcotic agent; Z68.41 Body mass index [BMI] 40.0-44.9, adult
CPT/HCPCS: 36415; 43775; 74246; 85025; J0690; J1170; J1644; J1885; J2250; J2405; J2704; J2710; J3010

== ENCOUNTER 2021-10-08 10:03 | Observation (INO) ==
[~2021-10-08 10:03] MED LIST changes: +Buffered Lidocaine 1% SYRIN 1 ml INTRADERM ONE; -Buffered Lidocaine 1% SYRIN* 1 ML/SYRINGE INTRADERM ONE; -Famotidine IV* 10 MG/ML 2 ML (20 mg) IV ONE; +Lactated Ringers 1000 ml BAG 1,000 ML IV SCH
[2021-10-08] MEDS ORDERED: ceFAZolin 2 GM PREMIX 2 GM/50 ML BAG ONE (10:11)
[2021-10-08] MEDS ORDERED: Rocuronium 50 mg VIAL 10 mg/ml 5 ml VIAL (50 mg) ONE ×2 (11:04→12:51)
[2021-10-08] MEDS ORDERED: Midazolam 2 mg/2 ml VIAL 1 mg/ml 2 ml VIAL (2 mg) ONE ×2 (11:04→11:05)
[2021-10-08] MEDS ORDERED: fentaNYL 250 mcg/5 ml 50 MCG/ML 5 ml VIAL (250 MCG) ONE (11:04)
[2021-10-08] MEDS ORDERED: Propofol 10 MG/ML 20 ML BTL ONE (11:05)
[2021-10-08] MEDS ORDERED: Lidocaine 2% PF 5 ML VIAL ONE (11:05)
[2021-10-08] MEDS ORDERED: Bupivacaine 0.25% w/EPI 10 ML SDV ONE (11:13)
[2021-10-08] MEDS ORDERED: Dexamethasone IV 4 MG/ML VIAL 1 ml VIAL ONE (12:14)
[2021-10-08] MEDS ORDERED: Ondansetron 4 mg VIAL 2 MG/ML 2 ml VIAL ONE (12:14)
[2021-10-08] MEDS ORDERED: Acetaminophen IV 1 GM/100ML 100 ML IV ONE (12:21)
[2021-10-08] MEDS ORDERED: oxyCODONE 5 mg/5 ml ORAL.SOLN UDC PO PRN (12:42)
[2021-10-08] MEDS ORDERED: Naloxone 0.4 mg VIAL 0.4 mg/ml 1 ml VIAL IV PRN (12:42)
[2021-10-08] MEDS ORDERED: HYDROmorphone 0.5 MG/0.5 ML SYRINGE ONE (13:03)
[2021-10-08] MEDS ORDERED: Bacitracin OINTMENT TUBE ONE (14:04)
[2021-10-08] MEDS ORDERED: HYDROmorphone 1 MG/1 ML SYRINGE ONE (14:51)
[2021-10-08] MEDS: HYDROmorphone 1 MG/1 ML SYRINGE IV PRN ×5 (14:54→15:38)
[2021-10-08] MEDS ORDERED: fentaNYL 100 mcg/2 ml 50 MCG/ML VIAL ONE (15:41)
[2021-10-08] MEDS: fentaNYL 100 mcg/2 ml 50 MCG/ML VIAL IV PRN ×3 (15:53→18:11)
[2021-10-08] MEDS ORDERED: oxyCODONE 5 mg/5 ml ORAL.SOLN UDC ONE (16:08)
[2021-10-08] MEDS ORDERED: Ondansetron 4 mg VIAL 2 MG/ML 2 ml VIAL IV PRN (18:23)
[2021-10-08] MEDS ORDERED: HYDROmorphone 0.5 MG/0.5 ML SYRINGE IV SLOW PU PRN (18:28)
[2021-10-08] MEDS: Lactated Ringers 1000 ml BAG 1,000 ML IV SCH (20:02)
[2021-10-08] MEDS: HYDROmorphone 0.5 MG/0.5 ML SYRINGE IV SLOW PU PRN (20:02)
[2021-10-08] MEDS: Heparin 5000 UNITS/ML 1 mL VIAL SUBCUT SCH (22:01)
[2021-10-09] MEDS: HYDROmorphone 0.5 MG/0.5 ML SYRINGE IV SLOW PU PRN ×2 (01:17→09:14)
[2021-10-09] MEDS: Heparin 5000 UNITS/ML 1 mL VIAL SUBCUT SCH ×3 (05:51→21:43)
[2021-10-09] MEDS: Lactated Ringers 1000 ml BAG 1,000 ML IV SCH ×2 (09:25→23:30)
[2021-10-09] MEDS ORDERED: HYDROmorphone 0.5 MG/0.5 ML SYRINGE IV SLOW PU PRN (17:10)
[2021-10-10 05:33] LABS: ABS Eosinophils 0.2 10^3/ul (0-0.6); ABS Lymphocytes 1.6 10^3/ul (1.0-4.8); ABS Monocytes 0.7 10^3/ul (0-0.8); ABS Neutrophils 3.8 10^3/ul (1.5-7.7); Eosinophil % 3.2 %; Hematocrit 36 % (35-47); Hemoglobin 11.6 g/dL (12.0-16.0); Lymphocyte % 24.9 %; Mean Corpuscular HGB Conc 33 g/dL (31-36); Mean Corpuscular Hemoglobin 28 pg (27-31); Mean Corpuscular Volume 86 fL (80-97); Nucleated Red Blood Cells % 0.1; Platelet Count 170 10^3/uL (150-450); Red Blood Count 4.13 10^6 /uL (3.70-4.87); Red Cell Distribution Width 14 % (10-15); White Blood Count 6.2 10^3/uL (3.5-10.8)
[2021-10-10] MEDS: Heparin 5000 UNITS/ML 1 mL VIAL SUBCUT SCH (05:36)
[2021-10-10 05:58] LABS: Calcium 8.1 mg/dL (8.6-10.3); Potassium 3.4 mmol/L (3.5-5.0); eGFR CKD-EPI 109.1 (>60)
[2021-10-10 11:22] VITALS: BP 98/60
== END 2021-10-10 11:48 | disposition home or self-care (01) ==
LOC: OR 10:03 → SSU 10:03
PROVIDERS: ADMIT Surgery; ATTEND Surgery